=== PATIENT | male | born 1985 | race Two or more races ===

== ENCOUNTER 2022-08-12 21:52 | Emergency (ER) | payer OTHER ==
[~2022-08-12] VITALS: Ht 175.3 cm; Wt 95.5 kg
[2022-08-12 21:54] VITALS: BP 149/92
[2022-08-12] MEDS ORDERED: IBUP-1554 PO (22:47)
[2022-08-12] MEDS ORDERED: ACET-2080 PO (22:47)
[2022-08-12] MEDS ORDERED: BACI28OI9 TP (22:47)
[2022-08-12] MEDS ORDERED: IBUPROFEN 600 MG TABLET PO ONE (23:00)
== END 2022-08-12 23:32 | disposition home or self-care (01) ==
LOC: EMS 21:54
DX: T22.251A Burn of second degree of right shoulder, initial encounter (principal); T24.201A Burn of second degree of unspecified site of right lower limb, except ankle and foot, initial encounter; T20.20XA Burn of second degree of head, face, and neck, unspecified site, initial encounter; T31.0 Burns involving less than 10% of body surface
CPT/HCPCS: 99282; Z7502; Z7610